=== PATIENT | male | born 1995 ===

== ENCOUNTER 2024-05-19 20:04 | Emergency (ER) | payer SELFPAY ==
--- NOTE | 2024-05-19 20:29 | PC.NURSE ---
left prior to being triaged. called at 2017 and 2027 with no answer
== END 2024-05-19 21:14 | disposition left against medical advice (07) ==
LOC: ANHED 20:38
DX: R19.7 Diarrhea, unspecified (principal); R11.2 Nausea with vomiting, unspecified
CPT/HCPCS: 99199